=== PATIENT | female | born 1975 | race Caucasian/White ===

== ENCOUNTER 2021-05-23 12:53 | Emergency (ER) | payer OTHER, SELFPAY ==
[2021-05-23 14:18] VITALS: BP 126/74; PULSE 75; RESP 16; TEMP 36.8; O2SAT 100
--- NOTE | 2021-05-23 15:31 | ED.URI ---
HPI - URI/Sore Throat General Chief Complaint: Upper Respiratory Infection Stated Complaint: nasal destiny,sore throat,cough Time Seen by Provider: 05/23/21 15:18 Source: patient and RN notes reviewed Mode of arrival: ambulatory Limitations: no limitations History of Present Illness HPI Narrative: Patient presents today complaining of 2-day history of congestion, left ear pain, sore throat, cough, fatigue, headache. She does report shortness of breath with coughing episodes and exertion as well. She has been taking DayQuil, NyQuil, and ibuprofen with mild relief. No history of asthma or COPD. She has been vaccinated against COVID-19. MD elicited complaint: cough and nasal congestion Related Data Home Medications Medication Instructions Recorded Confirmed citalopram 20 mg PO DAILY 05/23/21 05/23/21 Allergies Allergy/AdvReac Type Severity Reaction Status Date / Time amoxicillin AdvReac Mild VOMITING Verified 05/23/21 15:34 clavulanic acid AdvReac Mild VOMITING Verified 05/23/21 15:34 Review of Systems Review of Systems: CONSTITUTIONAL: Denies body aches, fever, chills, or sweats.+ Fatigue EYES: Denies visual changes, redness, or discharge. ENT: Denies rhinorrhea.+ Congestion, sore throat, left ear pain CARDIOVASCULAR: Denies chest pain, palpitations, or edema. RESPIRATORY: + Cough, shortness of breath GASTROINTESTINAL: Denies abdominal pain, nausea, vomiting, or diarrhea. GENITOURINARY: Denies dysuria or hematuria. SKIN: Denies rash, itching, or wounds. MUSCULOSKELETAL: Denies back pain, joint pain, or myalgia. NEUROLOGIC: Denies numbness, tingling, or weakness.+ Headache PSYCH: Denies depression or anxiety. PMFSH Comments At time of signature, I have reviewed and agree with nursing past medical, surgical, social and family history unless otherwise noted. Please see nursing chart for further information. There is no relevant family history pertinent to the presenting complaint Exam Narrative: GENERAL: Mildly ill-appearing, well-nourished, and in no acute distress. HEAD: Normocephalic, atraumatic. EYES: EOMI. No redness or drainage. Conjunctivae normal. ENT: Mucous membranes pink and moist. Nares clear. No rhinorrhea. TMs normal bilaterally. Throat normal. Uvula midline. NECK: Normal AROM. Supple. No lymphadenopathy. CHEST: No respiratory distress. Clear to auscultation. HEART: Regular rate and rhythm. No murmur appreciated. Normal peripheral pulses. EXTREMITIES: Normal range of motion. No edema. SKIN: Warm, dry, no rash. Capillary refill normal. Normal skin turgor. NEURO: No focal deficits. Alert and oriented x3. Gait steady. PSYCH: Normal affect. No signs of depression or anxiety. Course Course Level of Care: Express Care Visit Vital Signs Vital signs: Vital Signs Temperature 98.2 F 05/23/21 14:18 Pulse Rate 75 05/23/21 14:18 Respiratory Rate 16 05/23/21 14:18 Blood Pressure 126/74 05/23/21 14:18 Pulse Oximetry 100 05/23/21 14:18 Temperature 98.2 F 05/23/21 14:18 Pulse Rate 75 05/23/21 14:18 Respiratory Rate 16 05/23/21 14:18 Blood Pressure 126/74 05/23/21 14:18 Pulse Oximetry 100 05/23/21 14:18 Reviewed. Pt has been instructed to follow up with her PCP regarding her elevated blood pressure today. MDM - URI/Sore Throat Differential Diagnosis Differential diagnosis: Likely upper respiratory infection, otitis media, viral infection, bronchitis, pharyngitis and other (COVID-19) Lab Data Attestation: I reviewed the patient's lab results. Labs: Lab Results 05/23/21 Range/Units 14:45 POC SARS CoV-2 Ag Positive (Negative) Critical Care Time Critical Care Time Critical Care Time: No Discharge Plan Discharge Clinical Impression: COVID-19 Patient Disposition: Home, Self-Care Condition: Stable Instructions: COVID-19 (Coronavirus Disease 2019) (ED) Additional Instructions: You are positive for COVID-19 today. Take Mucinex during
== END 2021-05-23 15:40 | disposition home or self-care (01) ==
PROVIDERS: Emergency Provider Nurse Practitioner; PCP Internal Medicine
DX: U07.1 COVID-19 (principal)
CPT/HCPCS: 87426; 99213; C9803; G0463

== ENCOUNTER 2022-07-17 08:55 | Emergency (ER) | payer OTHER, SELFPAY ==
[2022-07-17 09:02] VITALS: BP 127/71; PULSE 77; RESP 16; TEMP 37.3; O2SAT 99
--- NOTE | 2022-07-17 09:33 | ED.URI ---
HPI - URI/Sore Throat General Chief Complaint: Upper Respiratory Infection Stated Complaint: Sore Throat/Left Ear Pain Source: patient and RN notes reviewed History of Present Illness HPI Narrative: 47-year-old female presents to urgent care with complaints of congestion, runny nose, headache, left ear pain, and sore throat. Patient states her symptoms have been getting worse over the last week. Patient reports chills but denies any fevers. Denies any chest pain, shortness of breath, vomiting, or diarrhea. Patient has been taking Mucinex with minimal relief. Some parts of this dictation were generated by voice recognition software and may contain typographical and/or grammatical inaccuracies. Related Data Home Medications Medication Instructions Recorded Confirmed citalopram 20 mg tablet 20 mg PO DAILY 05/23/21 07/17/22 esomeprazole magnesium 40 mg 40 mg PO DAILY 07/17/22 07/17/22 capsule,delayed release (Nexium) levonorgestrel 21 mcg/24 hours (8 1 device intrauterine ONCE 07/17/22 07/17/22 yrs) 52 mg intrauterine device (Mirena) Allergies Allergy/AdvReac Type Severity Reaction Status Date / Time amoxicillin AdvReac Mild VOMITING Verified 07/17/22 09:26 clavulanic acid AdvReac Mild VOMITING Verified 07/17/22 09:26 Review of Systems Review of Systems: CONSTITUTIONAL: Denies fever, chills, or sweats. EYES: Denies visual changes, redness, or discharge. ENT: Ear pain, sore throat, congestion CARDIOVASCULAR: Denies chest pain, palpitations, or edema. RESPIRATORY: Denies cough or dyspnea. GASTROINTESTINAL: Denies abdominal pain, nausea, vomiting, or diarrhea. GENITOURINARY: Denies dysuria or hematuria. SKIN: Denies rash or itching. MUSCULOSKELETAL: Denies back pain, joint pain, or myalgia. NEUROLOGIC: Headache PMFSH Comments At the time of my signature, I reviewed and agree with the nursing past medical, surgical, social, and family history. There is no relevant family history pertinent to the patient complaint. Exam Narrative: GENERAL: This is a well-nourished, well-developed patient, in no apparent distress. HEAD: normocephalic, atraumatic. EYES: PERRL. Sclera clear/white. Vision is grossly intact. EARS: External ears normal, auditory canals clear and without drainage, TMs normal without perforation. Hearing grossly intact. NOSE: External nose normal with no obvious nasal discharge, nares without redness, no rhinorrhea. THROAT: Mucous membranes moist, posterior pharynx erythemic. No exudate.. NECK: Neck supple, non-tender without lymphadenopathy, masses or thyromegaly. CARDIOVASCULAR: Regular rate and rhythm without murmurs, gallops, or rubs. RESPIRATORY: Clear to auscultation. Breath sounds equal bilaterally. No wheezes, rales, or rhonchi. GASTROINTESTINAL: Abdomen soft, non-tender, nondistended. Bowel sounds are active. No hepato-splenomegaly, or palpable masses. No guarding. SKIN: warm, intact with no suspicious lesions or rash, good texture and turgor. NEURO: awake, alert, and oriented to person, place and time. There were no obvious focal neurologic abnormalities. Course Course Level of Care: Express Care Visit Vital Signs Vital signs: Vital Signs Temperature 99.1 F 07/17/22 09:02 Pulse Rate 77 07/17/22 09:02 Respiratory Rate 16 07/17/22 09:02 Blood Pressure 127/71 07/17/22 09:02 Pulse Oximetry 99 07/17/22 09:02 Oxygen Delivery Room Air 07/17/22 09:02 Temperature 99.1 F 07/17/22 09:02 Pulse Rate 77 07/17/22 09:02 Respiratory Rate 16 07/17/22 09:02 Blood Pressure 127/71 07/17/22 09:02 Pulse Oximetry 99 07/17/22 09:02 Oxygen Delivery Room Air 07/17/22 09:02 Reviewed MDM - URI/Sore Throat MDM Narrative Medical decision making narrative: After 24 hours on antibiotics throw tooth brush away and start using a new one. Do not share drinks. Take Motrin alternating with Tylenol for pain and fever alternating every 4 hours. Increase fluids, fredi
== END 2022-07-17 09:37 | disposition home or self-care (01) ==
PROVIDERS: Emergency Provider Nurse Practitioner Family; PCP Internal Medicine
DX: J02.0 Streptococcal pharyngitis (principal)
CPT/HCPCS: 87880; 99213; G0463